=== PATIENT | female | born 1965 | race Caucasian/White ===

== ENCOUNTER → 2016-12-31 | Outpatient (REF) | payer MEDICARE | LOC: M SFHCWAGY 16:00 | PROVIDERS: ATTEND Nurse Practitioner Family | DX: Z12.4 Encounter for screening for malignant neoplasm of cervix (principal); Z12.12 Encounter for screening for malignant neoplasm of rectum | CPT/HCPCS: 82270; G0101; G0123 ==

== ENCOUNTER → 2017-12-16 | Outpatient (REF) | payer MEDICARE, MEDICAID ==
[2017-12-16 11:31] LABS: ANION GAP 7 MEQ/L (8-16); BLOOD UREA NITROGEN 11 MG/DL (7-18); CALCIUM LEVEL 9.2 MG/DL (8.5-10.1); CARBON DIOXIDE LEVEL 30 MEQ/L (21-32); CHLORIDE LEVEL 107 MEQ/L (98-107); CREATININE FOR GFR 0.89 MG/DL (0.55-1.30); GLOMERULAR FILTRATION RATE > 60.0 (>51); GLUCOSE, FASTING 88 MG/DL (70-100); POTASSIUM SERUM 4.4 MEQ/L (3.5-5.1); SODIUM LEVEL 144 MEQ/L (136-145)
[2017-12-16 12:52] LABS: HEMATOCRIT 41.9 % (36.0-47.0); HEMOGLOBIN 13.6 g/dl (12.0-15.5); MEAN CORPUSCULAR HEMOGLOBIN 32.2 pg (27.0-33.0); MEAN CORPUSCULAR HGB CONC 32.5 g/dl (32.0-36.5); MEAN CORPUSCULAR VOLUME 99.1 fl (80.0-96.0); PLATELET COUNT, AUTOMATED 147 10^3/uL (150-450); RED BLOOD COUNT 4.23 10^6/uL (4.00-5.40); RED CELL DISTRIBUTION WIDTH 12.5 % (11.5-14.5); WHITE BLOOD COUNT 5.9 10^3/uL (4.0-10.0)
== END ==
LOC: M SFHCPLAZ 08:41
DX: Z01.818 Encounter for other preprocedural examination (principal); M20.11 Hallux valgus (acquired), right foot; M20.41 Other hammer toe(s) (acquired), right foot; M79.671 Pain in right foot
CPT/HCPCS: 80048

== ENCOUNTER 2017-12-23 10:09 | Day surgery (SDC) | payer MEDICARE, MEDICAID ==
[2017-12-23] MEDS ORDERED: LIDOCAINE 1% MDV 20ML VIAL SQ (10:45)
[2017-12-23] MEDS: LR 1,000 ML IV (10:54)
[2017-12-23] MEDS ORDERED: MIDAZOLAM INJ 2 MG/2 ML VIAL (J2250) As Ordered (12:23)
[2017-12-23] MEDS ORDERED: LIDOCAINE 2% INJ 100 MG/5 ML SDV (FOR ANES.) As Ordered (12:23)
[2017-12-23] MEDS ORDERED: fentaNYL 100 MCG/2 ML INJECTION (J3010) As Ordered ×2 (12:23→13:52)
[2017-12-23] MEDS ORDERED: PROPOFOL 200 MG/20 ML VIAL As Ordered ×3 (12:23→13:29)
[2017-12-23] MEDS ORDERED: ONDANSETRON 4MG/2ML VIAL (J2405) As Ordered (12:23)
[2017-12-23] MEDS: LIDOCAINE 2% MDV 20 ML VIAL As Ordered (12:57)
[2017-12-23] MEDS: BUPIVACAINE HCL 0.5% 30 ML VIAL As Ordered (12:57)
[2017-12-23] MEDS: BACITRACIN PWD 50,000 UNITS VIAL As Ordered (12:59)
[2017-12-23] MEDS: NEOSPORIN GU IRRIG 20 ML VIAL As Ordered (12:59)
[2017-12-23] MEDS ORDERED: ePHEDrine SULFATE 25 MG/5 ML(5MG/ML) SYRINGE As Ordered (13:34)
[2017-12-23] MEDS: dexameTHASONE 4 MG/ML 1ML VIAL (J1100) As Ordered (13:46)
== END 2017-12-23 15:50 | disposition home or self-care (01) ==
LOC: M SDC 10:09
DX: M20.11 Hallux valgus (acquired), right foot (principal); M20.41 Other hammer toe(s) (acquired), right foot; B37.2 Candidiasis of skin and nail; K64.8 Other hemorrhoids; M12.9 Arthropathy, unspecified; R32 Unspecified urinary incontinence; Z72.0 Tobacco use; Z78.0 Asymptomatic menopausal state
CPT/HCPCS: 28296